=== PATIENT | female | born 1990 | race Caucasian/White ===

== ENCOUNTER 2019-03-27 19:31 | Emergency (ER) | payer SELFPAY ==
[~2019-03-27] VITALS: Ht 165.1 cm; Wt 55.8 kg
[2019-03-27 19:51] VITALS: BP 129/74; Ht 165.1 cm; Wt 55.8 kg
[2019-03-27 20:56] LABS: BASOPHIL % 0.2 % (0-2); PLATELET COUNT 369 x10^3mcL (130-400); RED CELL DISTRIBUTION WIDTH 13.6 % (11.5-14.5)
[2019-03-27 21:35] LABS: CHLORIDE SERUM 103 mmol/L (98-107); POTASSIUM SERUM 3.6 mmol/L (3.5-5.1); SODIUM SERUM 140 mmol/L (136-145)
[2019-03-27 21:36] LABS: ALBUMIN 4.4 g/dL (3.4-5.0); AST/SGOT 27 U/L (15-37); BILIRUBIN TOTAL 0.4 mg/dL (0.20-1.00); CALCIUM 9.3 mg/dL (8.5-10.1); CARBON DIOXIDE 26.6 mmol/L (21-32); CREATININE SERUM 0.8 mg/dL (0.6-1.0); GFR1 > 60 mL/min; GLUCOSE SERUM 80 mg/dL (74-106); TOTAL PROTEIN, SERUM 8.2 g/dL (6.4-8.2)
[2019-03-27 21:37] LABS: ALKALINE PHOSPHATASE 97 U/L (46-116); ALT/SGPT 33 U/L (14-59)
== END 2019-03-27 21:57 | disposition left against medical advice (07) ==
LOC: ED 19:31
PROVIDERS: Emergency Medicine
DX: R21 Rash and other nonspecific skin eruption (principal); R51 Headache; R06.02 Shortness of breath
CPT/HCPCS: 36415